=== PATIENT | male | born 1955 | race Two or more races ===

== ENCOUNTER 2018-10-15 18:16 | Emergency (ER) | payer OTHER ==
[~2018-10-15] VITALS: Ht 167.6 cm; Wt 78.0 kg
[2018-10-15] MEDS ORDERED: ZOCOR20 MG (18:25)
[2018-10-15] MEDS ORDERED: TRAMADOL HCL50 MG (18:25)
[2018-10-15] MEDS ORDERED: METFORMIN HCL1000 M1 (18:25)
== END 2018-10-16 22:21 | disposition home or self-care (01) ==
LOC: ER 18:16 → EDBD 18:16 → ER 18:29
DX: M54.16 Radiculopathy, lumbar region (principal)

== ENCOUNTER → 2022-04-29 | Emergency (ER) | payer OTHER ==
[~2022-04-29] VITALS: Ht 167.6 cm; Wt 83.5 kg
[~2022-04-29] MED LIST: METFORMIN HCL1000 M1; TRAMADOL HCL50 MG; ZOCOR20 MG
== END | disposition home or self-care (01) ==
LOC: ER 09:59
DX: M51.26 Other intervertebral disc displacement, lumbar region (principal); E11.9 Type 2 diabetes mellitus without complications; Z79.84 Long term (current) use of oral hypoglycemic drugs; I10 Essential (primary) hypertension; E03.9 Hypothyroidism, unspecified

== ENCOUNTER 2022-05-26 18:12 | Emergency (ER) | payer OTHER ==
[~2022-05-26] VITALS: Ht 167.6 cm; Wt 87.1 kg
[2022-05-26] MEDS ORDERED: GLUMETZA1000 MG (18:54)
[2022-05-26] MEDS ORDERED: SIMVASTATIN5 MG (18:54)
[2022-05-26] MEDS ORDERED: SYNTHROID100 MCG PO (18:55)
== END 2022-05-26 19:21 | disposition home or self-care (01) ==
LOC: ER 18:12
DX: M54.50 Low back pain, unspecified (principal)